=== PATIENT | male | born 1945 | race Caucasian/White ===

== ENCOUNTER → 2018-04-16 | Outpatient (CLI) | payer MEDICARE ==
[~2018-04-16] MED LIST: AMLODIPINE BES1 TA1 PO; ASPIRIN81 M1 PO; AUGMENTIN 875-875 MG PO; CARDIZEM CD240 MG PO; COQ-1030 MG PO; COUMADIN3 M1 PO; LANOXIN0.25 MG PO; LISINOPRIL HCTZ1 TAB PO; METFORMIN500 MG PO; MULTI VITAMINS1 TAB PO; TENORMIN50 MG PO; VITAMIN D400 I1 PO; VYTORIN 10 MG-21 TA2 PO; XANAX0.25 MG PO; ZESTRIL10 MG PO
== END | disposition home or self-care (01) ==
LOC: US 12:44
DX: I65.21 Occlusion and stenosis of right carotid artery (principal); I25.10 Atherosclerotic heart disease of native coronary artery without angina pectoris; I48.2 Chronic atrial fibrillation; I10 Essential (primary) hypertension; R09.89 Other specified symptoms and signs involving the circulatory and respiratory systems; Z79.01 Long term (current) use of anticoagulants; Z86.79 Personal history of other diseases of the circulatory system

== ENCOUNTER → 2019-01-18 | Outpatient (CLI) | payer MEDICARE ==
--- NOTE | ~2019-01-18 | HM ---
[place], [place] HOLTER MONITOR REPORT NAME: JASPER GIBBONS UNIT #: [id number] ROOM: DOCTOR: ELIDA DAWSON MD BIRTHDATE: [birth year] DOS: 01/19/2019 24-hour Holter Monitor REFERRING PHYSICIAN: William Butcher M.D. INDICATION: Chronic atrial fibrillation and medication adjustment. The patient underwent standard protocol of 24-hour Holter monitor. The patient's baseline rhythm is atrial fibrillation with slow ventricular response with average heart rate of 53 beats per minute. The patient's minimum heart rate was 31 beats per minute, which was noted in the early a.m. hours, particularly at 4:45 a.m. with a maximum heart rate of 88 beats per minute. 1. Ventricular activity, there were 3 isolated PACs were noted. 2. Ventricular activity, total of 10 isolated PVCs were noted. 3. No significant blocks, pauses, or bradycardia was noted. The longest R-R duration was noted to be 2.3 seconds occurring at 12:51 in the afternoon. 4. No diary entries were noted. SUMMARY OF FINDINGS: 1. Baseline atrial fibrillation with slow ventricular response with a minimum heart rate of 31 beats per minute in early a.m. hours. 2. Longest R-R interval was 2.3 seconds happening in the middle of the day hours. 3. Very rare PACs and PVCs were noted. 4. No diary was returned. ELIDA DAWSON MD CM:HOLTER:HOLTER MONITOR REPORT [id number] ELIDA DAWSON MD
== END | disposition home or self-care (01) ==
LOC: CARD 00:38
DX: Z51.89 Encounter for other specified aftercare (principal); I48.2 Chronic atrial fibrillation

== ENCOUNTER 2019-10-10 12:59 | Inpatient (IN) | payer MEDICARE ==
[~2019-10-10] VITALS: Ht 167.6 cm; Wt 75.4 kg
[2019-10-10 13:06] VITALS: BP 137/59
[2019-10-10 13:22] LABS: HEMATOCRIT 30.6 % (42.0-52.0); HEMOGLOBIN 8.7 g/dl (14.0-18.0); MEAN CELL VOLUME 75.9 fl (80.0-94.0); MEAN CORPUSCULAR HGB 21.6 pg (27.0-31.0); MEAN CORPUSCULAR HGB CONC 28.4 g/dl (33.0-37.0); MEAN PLATELET VOLUME 10.6 fl (9.6-12.3); NUCLEATED RED BLOOD CELL 0.2 % (0.0-0.0); PLATELET COUNT AUTOMATED 311 10*3/uL (130-400); RED BLOOD COUNT 4.03 10*6/uL (4.50-5.90); RED CELL DISTRI WIDTH 21.6 % (0-14.5); WHITE BLOOD COUNT 8.5 10*3/uL (4.8-10.8)
[2019-10-10 13:32] LABS: ACT PARTIAL THROMBO TIME 37.6 SECONDS (20.0-32.1); INTERNATIONAL NORM RATIO 4.1 (2.0-3.5)
[2019-10-10 13:39] LABS: ALKALINE PHOSPHATASE 128 U/L (45-117); BUN 35 mg/dl (7-24); CHLORIDE 98 mmol/L (98-107); CREATININE 1.97 mg/dL (0.70-1.30); POTASSIUM 5.4 mmol/L (3.5-5.1); SGOT/AST 50 IU/L (3-35); SGPT/ALT 33 U/L (12-78); SODIUM 130 mmol/L (136-145); TOTAL CELLS COUNTED 100 #CELLS; TOTAL PROTEIN 8.3 gm/dL (6.4-8.2)
[2019-10-10 13:40] LABS: MICROCYTOSIS SLIGHT; OVALOCYTES FEW; PLATELET SUFFICIENCY NORMAL (NORMAL); POLYCHROMASIA SLIGHT
[2019-10-10 13:41] LABS: BURR CELLS FEW; TARGET CELLS FEW; TROPONIN I < 0.015 ng/ml (<0.045)
[2019-10-10 14:43] VITALS: BP 135/49
[2019-10-10] MEDS ORDERED: ATENOLOL100 M1 PO (15:20)
[2019-10-10] MEDS ORDERED: AMLODIPINE BESYL5 MG PO (15:20)
[2019-10-10] MEDS ORDERED: LASIX40 MG PO (15:21)
[2019-10-10 15:23] VITALS: BP 123/62
[2019-10-10] MEDS ORDERED: ZETIA10 MG PO (15:23)
[2019-10-10] MEDS ORDERED: SIMVASTATIN20 MG PO (15:24)
[2019-10-10] MEDS ORDERED: COUMADIN2 M1 PO (15:29)
--- NOTE | 2019-10-10 15:29 | NUR ---
DR. DAWSON'S ANSWERING SERVICE NOTIFIED OF CONSULT.
[2019-10-10] MEDS ORDERED: COUMADIN4 M2 PO (15:41)
--- NOTE | 2019-10-10 15:42 | NUR ---
MED REC UPDATED PER POLICY.
--- NOTE | 2019-10-10 17:11 | NUR ---
DR. ELKINS INFOMRED OF TROPONIN LEVEL.
--- NOTE | 2019-10-10 18:03 | NUR ---
ATTEMPTED TO PLACE DAVID CATHETER WITH NO URINE RETURN. PATIENT STATED HE HAD JUST VOIDED BUT BLOOD WAS NOTICED IN DAVID CATHETER TUBING. DAVID REMOVED AND PRESSURE HELD UNTIL BLEEDING STOPPED. DR. DSOUZA NOTIFIED AND DAVID CATHETER NOT BEING PLACED AT THIS TIME. WILL MONITOR.
--- NOTE | 2019-10-10 19:33 | NUR ---
DR HUANG AWARE OF CRITICAL TROPONIN. ORDERS TAKEN
--- NOTE | 2019-10-10 19:35 | NUR ---
PATIENT RESTING IN BED WITH AT BEDSIDE. DENIES CHEST PAIN OR SHORTNESS OF BREATH AT THIS TIME
[2019-10-10 20:00] VITALS: BP 123/55
--- NOTE | 2019-10-10 20:02 | NUR ---
PAGE SENT OUT TO DR ELKINS AT THIS TIME
--- NOTE | 2019-10-10 20:06 | NUR ---
DR ELKINS AWARE OF PATIENT'S TROPONINS, EKG, AND LABS. STATES TO NOT GIVE THE LOVENOX UNTIL INR IS BELOW 2. TROPONIN AND EKG ORDERS FOR THE AM TAKEN.
--- NOTE | 2019-10-10 22:40 | NUR ---
24 HR chart check completed.
[2019-10-11] VITALS: BP 126/43
--- NOTE | 2019-10-11 02:51 | NUR ---
PATIENT RESTING WITH EYES CLOSED. RESPS REGULAR ON 3L NC. BED IN LOWEST POSITON, CALL LIGHT IN REACH
[2019-10-11 05:32] LABS: HEMATOCRIT 28.2 % (42.0-52.0); HEMOGLOBIN 8.2 g/dl (14.0-18.0); MEAN CELL VOLUME 72.9 fl (80.0-94.0); MEAN CORPUSCULAR HGB 21.2 pg (27.0-31.0); MEAN CORPUSCULAR HGB CONC 29.1 g/dl (33.0-37.0); MEAN PLATELET VOLUME 10.1 fl (9.6-12.3); NUCLEATED RED BLOOD CELL 0.3 % (0.0-0.0); PLATELET COUNT AUTOMATED 268 10*3/uL (130-400); RED BLOOD COUNT 3.87 10*6/uL (4.50-5.90); RED CELL DISTRI WIDTH 21.5 % (0-14.5); RETICULOCYTE % 2.09 % (0.50-2.50)
[2019-10-11 05:40] LABS: INTERNATIONAL NORM RATIO 4.2 (2.0-3.5)
[2019-10-11 05:56] LABS: ALBUMIN 3.7 gm/dl (3.1-4.5); CREATININE 1.82 mg/dL (0.70-1.30); PHOSPHOROUS 3.8 mg/dL (2.5-4.9); TOTAL PROTEIN 7.3 gm/dL (6.4-8.2)
[2019-10-11 05:59] LABS: TROPONIN I 0.132 ng/ml (<0.045)
[2019-10-11 06:07] LABS: BASOPHILS 1 % (0-1); DIGOXIN 0.1 ng/ml (0.8-2.0); FREE T4 1.45 ng/dl (0.76-1.46); THYROID STIM HORMONE (HS) 1.06 uIU/ml (0.358-4.75); TOTAL CELLS COUNTED 100 #CELLS
--- NOTE | 2019-10-11 06:07 | NUR ---
DR HUANG AWARE OF CRITICAL TROPONIN. NO ORDERS. STATES DO NOT NEED TO CALL CARDIO
[2019-10-11 06:08] LABS: BURR CELLS FEW; OVALOCYTES MODERATE
[2019-10-11 06:09] LABS: PLATELET SUFFICIENCY NORMAL (NORMAL)
[2019-10-11 08:00] VITALS: BP 120/52
[2019-10-11 08:30] LABS: FERRITIN 36.7 ng/mL (22.0-322.0); VITAMIN D, 25-HYDROXY 54.2 ng/mL (30-100)
--- NOTE | 2019-10-11 09:31 | NUR ---
NOTIFIED OF NEW CONSULT. TO GET BLOOD GASES PER AND CALL HIM WITH RESULTS.
[2019-10-11 10:17] LABS: ABG BASE EXCESS 0.1 mmol/L (-2.0-2.0); ARTERIAL BLOOD GAS PH 7.439 (7.35-7.45)
--- NOTE | 2019-10-11 10:39 | NUR ---
Patient not able to participate in Occupational Therapy at this time d/t critical troponin and SOB w/ min exertion. Nurse requested OTR recheck this pm. Cheyanne Hassan OTR/l
--- NOTE | 2019-10-11 10:48 | NUR ---
NOTIFIED WILL BLOOD GAS RESULTS. NO NEW ORDERS RECEIVED.
[2019-10-11 12:00] VITALS: BP 109/51
--- NOTE | 2019-10-11 13:53 | NUR ---
Patient approached and offered Occupational Therapy evaluation. Patient verbalized, I don't want any OT, "I've spent over $100,000.00 on OT already!" Patient then went on to explain that both of his daughters are Registered Occupational Therapists and that he has everything he needs from them. Patient pleasantly declined OT evaluation and explained that his daughters have modified his home and provide whatever he needs. D/C OT referral. Thank you. Cheyanne Hassan Otr/L
--- NOTE | 2019-10-11 14:09 | NUR ---
PHYSICAL THERAPY Chart reviewed attempted to see pt for assessement per nsg pt with critical troponin levels, to defer therapy at this time Opal Huerta PT
--- NOTE | 2019-10-11 14:40 | NUR ---
Java Web User Interface Developer in to talk to patient. Patient states lives at HOME with . There are NO steps in the home. Physician: JEAN [facility] [place] [facility]: NONE Patient's level of ADLs: INDEPENDENT Patient has working utilities: YES DME: [facility] Follow-up physician's appointment after d/c: WILL BE MADE BY HOSPITALIST NURSE DIRECTOR ON DISCHARGE Does patient want to access PORTAL?: NO Discharge plan PT LIVES AT HOME WITH AND IS INDEPENDENT IN HIS CARE. PT AND DENY THEY WILL HAVE AN NEEDS ON DISCHARGE. WILL CONTINUE TO FOLLOW. WILL TRANSPORT HOME. . SALBADOR WANG
[2019-10-11 16:00] VITALS: BP 122/60
--- NOTE | 2019-10-11 19:54 | NUR ---
PATIENT RESTING IN BED WITH AT BEDSIDE. DENIES SHORTNESS OF BREATH OR PAIN AT THIS TIME. BED IN LOWEST POSITION, CALL LIGHT IN REACH
[2019-10-11 20:00] VITALS: BP 119/49
--- NOTE | 2019-10-11 20:48 | NUR ---
DR HUANG AWARE OF BLOOD PRESSURE AND HEART RATE. OK TO GIVE SCHEDULED LOPRESSOR
[2019-10-12] VITALS: BP 111/46
[2019-10-12 07:33] LABS: INTERNATIONAL NORM RATIO 2.3 (2.0-3.5)
[2019-10-12 07:53] LABS: HEMATOCRIT 28.3 % (42.0-52.0); HEMOGLOBIN 8.4 g/dl (14.0-18.0); MEAN CELL VOLUME 73.7 fl (80.0-94.0); MEAN CORPUSCULAR HGB 21.9 pg (27.0-31.0); MEAN CORPUSCULAR HGB CONC 29.7 g/dl (33.0-37.0); NUCLEATED RED BLOOD CELL 0.1 10*3/uL (0.0-0.0); NUCLEATED RED BLOOD CELL 0.5 % (0.0-0.0); PLATELET COUNT AUTOMATED 278 10*3/uL (130-400); RED BLOOD COUNT 3.84 10*6/uL (4.50-5.90); RED CELL DISTRI WIDTH 22.3 % (0-14.5); WHITE BLOOD COUNT 10.7 10*3/uL (4.8-10.8)
[2019-10-12 08:00] VITALS: BP 128/58
[2019-10-12 08:02] LABS: ALBUMIN 3.8 gm/dl (3.1-4.5); ALKALINE PHOSPHATASE 123 U/L (45-117); BUN 33 mg/dl (7-24); CHLORIDE 99 mmol/L (98-107); CREATININE 1.34 mg/dL (0.70-1.30); PHOSPHOROUS 2.7 mg/dL (2.5-4.9); POTASSIUM 4.6 mmol/L (3.5-5.1); SGOT/AST 81 IU/L (3-35); SGPT/ALT 60 U/L (12-78); SODIUM 132 mmol/L (136-145)
[2019-10-12 08:22] LABS: ATYPICAL LYMPHS 1 % (0-0); POLYCHROMASIA SLIGHT; SCHISTOCYTES FEW; TOTAL CELLS COUNTED 100 #CELLS
[2019-10-12 08:23] LABS: PLATELET SUFFICIENCY NORMAL (NORMAL); TARGET CELLS FEW
[2019-10-12 08:24] LABS: MICROCYTOSIS SLIGHT
--- NOTE | 2019-10-12 11:15 | NUR ---
PHYSICAL THERAPY Attempted to see pt for evaluation however declining at present time as he wants to wait until after he receives his thoracentesis. present and in agreement with patient, will follow Opal Huerta PT
[2019-10-12 12:00] VITALS: BP 121/73
--- NOTE | 2019-10-12 14:50 | NUR ---
PATIENT VOIDED 100ML PINK-CLEAR URINE, STATES HAD SOME BURNING W/URINATION WHEN VOIDING THIS URINE.
[2019-10-12 16:00] VITALS: BP 120/52
[2019-10-12 20:00] VITALS: BP 138/58
--- NOTE | 2019-10-12 20:30 | NUR ---
RESTIING IN BED WITH HOB ELEVATED. 02 INTACT AT 2LPM VIA N/C; PULSE OX 93%. LUNGS WITH EXPIRATORY WHEEZES NOTED & PT. HAS A MOIST COUGH PRODUCTIVE FOR YELLOW SPUTUM. PITTING EDEMA NOTED TO BILATERAL LOWER EXTREMITY +2/+3. PT. VOICES NO C/O AT THIS TIME. NO DISTRESS NOTED. CALL LIGHT WITHIN REACH.
--- NOTE | 2019-10-12 22:00 | NUR ---
BLOOD SUGAR 128; NO COVERAGE REQUIRED.
--- NOTE | 2019-10-12 23:04 | NUR ---
Pt increased from 2L NC to 3L NC. SpO2 91% inc to 94%
--- NOTE | 2019-10-12 23:20 | NUR ---
REPORT RECEIVED FROM ROLAND RN. PT WATCHING TV. VOICES NO COMPLAINTS AT THIS TIME. CALL LIGHT IN REACH.
[2019-10-13] VITALS: BP 134/49
[2019-10-13 06:39] LABS: INTERNATIONAL NORM RATIO 1.7 (2.0-3.5)
[2019-10-13 06:48] LABS: ALBUMIN 3.4 gm/dl (3.1-4.5); CHLORIDE 100 mmol/L (98-107); CREATININE 1.02 mg/dL (0.70-1.30); POTASSIUM 4.1 mmol/L (3.5-5.1); SODIUM 133 mmol/L (136-145)
[2019-10-13 06:51] LABS: BUN 22 mg/dl (7-24)
[2019-10-13 08:00] VITALS: BP 124/62
--- NOTE | 2019-10-13 08:10 | NUR ---
DR. ALLISON IN TO PERFORM RT THORACENTESIS. PROCEDURE START TIME 0755, END TIME 08. 1050ML PLEURAL FLUID REMOVED, PATIENT TOLERATED WELL. GAUZE DRESSING APPLIED TO RIGHT POSTERIOR RIB CAGE, NO BLEEDING NOTED. SAMPLES SENT TO LAB.
[2019-10-13 09:22] LABS: BODY FLUID WBC 9 /uL
[2019-10-13 11:15] LABS: BF LYMPHOCYTES 39 %; BF MACROPHAGES 33 %; BF MONOCYTES 2 %; BF NEUTROPHILS 26 %
--- NOTE | 2019-10-13 11:34 | NUR ---
PHYSICAL THERAPY Attempted to see pt for evaluaion presently receiving a breathing treatment and per Maria Eugenia he is very tired this AM and does not want pt seen. Will try to follow in the PM for assessment. Opal Huerta PT
[2019-10-13 12:00] VITALS: BP 110/59
--- NOTE | 2019-10-13 12:26 | NUR ---
BLOCK CAPTAIN IN TO TALK TO PT AND . BOTH CONTINUE TO STATE PT WILL RETURN HOME ON DISCHARGE AND WILL HAVE NO NEEDS. WILL CONTINUE TO FOLLOW.
--- NOTE | 2019-10-13 15:13 | NUR ---
PHYSICAL THERAPY Lisa completed full report to follow moderate level of complexity 06981 Pt would benfit from further rehab but per will take home recomend f/u HH and may need FWW pending progress with amb. PT to work on transfer,amb and strengthening. Opal Huerta PT
[2019-10-13 16:00] VITALS: BP 102/50
--- NOTE | 2019-10-13 19:15 | NUR ---
IN TO SEE PT AT THIS TIME. PT CO SOME BLEEDING FROM HIS PRIVATE PARTS. . BLEEDING SEEMS TO BE SUBSIDING AT THIS POINT. RESPIRATIONS EASY, NONLABORED. PT HAS NO OTHER COMPLAINTS AT THIS TIME. WILL CONTINUE TO MONITOR. CALL LIGHT WITHIN REACH.
[2019-10-13 20:00] VITALS: BP 120/54
[2019-10-14] VITALS: BP 104/54
--- NOTE | 2019-10-14 01:32 | NUR ---
24 HR chart check completed.
--- NOTE | 2019-10-14 04:29 | NUR ---
PT REQUESTING PRN XANEX AT THIS TIME. MEDICATED WITH PRN XANEX ORDERED FOR ANXIETY. WILL CHECK EFFECTIVENESS. CALL LIGHT WITHIN REACH.
[2019-10-14 07:11] LABS: INTERNATIONAL NORM RATIO 1.5 (2.0-3.5)
[2019-10-14 08:00] VITALS: BP 112/62
--- NOTE | 2019-10-14 10:00 | NUR ---
PHYSICAL THERAPY Patient seen this am 1:1 for therapy visit and was supine in bed with his present upon therapist arrival. Patient identified by name / and reports feeling a bit "sluggish" this morning. Patient transfers supine to sit EOB with MIN A, then sit to stand CGA x 1, ambulating with use of wh walker, 20'x 2 to bathroom, CGA. Patient performed safe toilet transfer and was assisted by his for all ADL'S. Patient demonstrated slow tonny with decreased stride, no LOB, however increased fatigue upon return to supine in bed. Patient remained in bed with call light, tray table, telephone and bed alarm for safety. Will continue per POC as tolerated, total treatment time 16 minutes. Roger Schroeder, SPARE PERSON
--- NOTE | 2019-10-14 11:40 | NUR ---
REFUSED BSG CHECK. ASKED TO COME BACK AT A LATER TIME.
--- NOTE | 2019-10-14 11:45 | NUR ---
DR.AZIZ FRANCO FOR PT TO DISCHARGE WHEN ABLE. WISHES FOR FOLLOW UP IN HIS OFFICE.
--- NOTE | 2019-10-14 11:49 | NUR ---
PT WAS ASSESSED FOR HOME O2. PT QUALIFIES PT AT REST SPO2 85-87% HR 100, RR 18, B/P 115/47, PLACED PT ON 2LNC PT AMBULATED SPO2 93-94% ON 2LNC PT AT REST SPO2 95% 2LNC, HR 98, RR 18, B/P 125/47 DR NOTIFIED AND RN NOTIFIED
[2019-10-14 12:00] VITALS: BP 110/60
--- NOTE | 2019-10-14 12:30 | NUR ---
CALLED TO ROOM BY DR JO TO TALK ABOUT PT GOING HOME WITH [facility] AND TO SEE IF DR PENA WOULD FOLLOW PT DAILY INR UNTIL THERAPEUTIC. SPOKE WITH DR SQUIRES OFFICE AND HE WILL FOLLOW IT DAILY UNTIL HE GOES OUT ON Oct. PER DR PENA HE WILL NEED TO BE CALLED DAILY WITH INR RESULTS. DR ORELLANA INFORMED. CALLED [facility] TO CHECK COST OF MED THEY ARE CHECKING AND WILL CALL ME BACK. ALSO CALLED [facility] TO CHECK COST, IT WOULD BE AROUND 45$ HERE. ALSO CALLED [facility] AND THEY WILL GO TO HOUSE AND CHECKED TO SEE IF THEY WERE ABLE TO DO DAILY INR. THEY WILL BE ABLE TO DO IT PER GANESH. [facility] AND INFORMED HER OF ABOVE.
--- NOTE | 2019-10-14 13:18 | NUR ---
RECEIVED A CALL BACK FROM [facility] THE COST OF MED THERE IS [phone]. CALLED HOSPITALIST OFFICE AND INFORMED WANDY THAT PT WOULD NEED SCRIP SENT TO OUR PHARMACY TO GET MED AT 45$.
--- NOTE | 2019-10-14 13:34 | NUR ---
TALKED WITH MAISHA IN HOSPITALIST OFFICE ABOUT PT AND CONCERNS IF INR IS NOT THERAPEUTIC BY THE TIME DR PENA GOES OUT OF TOWN. STATES SHE WILL PUT RESIDENT CLINIC NUMBER ON DISCHARGE FORM AND THEY WILL TAKE CARE OF IT. WILL INFORM AND PT.
[2019-10-14] MEDS ORDERED: METOPROLOL TART50 M1 PO (13:43)
[2019-10-14] MEDS ORDERED: ALDACTONE25 MG PO (13:43)
--- NOTE | 2019-10-14 14:04 | NUR ---
REFERRAL SENT TO [facility].
[2019-10-14 16:00] VITALS: BP 117/49
--- NOTE | 2019-10-14 17:00 | NUR ---
REFUSED BSG CHECK.
--- NOTE | 2019-10-14 17:01 | NUR ---
Discharge instructions reviewed with patient/family. Patient receptive and verbalizes understanding. Follow-up care arranged. Written instructions given to patient/family. ZUHAIR ABARCA
--- NOTE | 2019-10-15 14:43 | NUR ---
PHYSICAL THERAPY CO-SIGN I approve of the Physical Therapy notes written above. Opal Huerta PT
== END 2019-10-14 17:01 | disposition home health service (06) | DRG 291 ==
LOC: ED 12:59 → 4E 14:18 → EDHOLD 14:18 → 4E 14:28
PROVIDERS: Emergency Medicine; Internal Medicine; Internal Medicine Critical Care Medicine; Registered Nurse; ADMIT Internal Medicine
PROC: 0W993ZZ Drainage of Right Pleural Cavity, Percutaneous Approach (ICD-10-PCS; principal; 2019-10-13)
DX: I13.0 Hypertensive heart and chronic kidney disease with heart failure and stage 1 through stage 4 chronic kidney disease, or unspecified chronic kidney disease (principal); N17.0 Acute kidney failure with tubular necrosis; J96.01 Acute respiratory failure with hypoxia; I50.33 Acute on chronic diastolic (congestive) heart failure; E87.1 Hypo-osmolality and hyponatremia; I48.21 Permanent atrial fibrillation; D68.69 Other thrombophilia; E44.1 Mild protein-calorie malnutrition; I24.8 Other forms of acute ischemic heart disease; J91.8 Pleural effusion in other conditions classified elsewhere; E87.5 Hyperkalemia; Z96.642 Presence of left artificial hip joint; D50.9 Iron deficiency anemia, unspecified; E78.00 Pure hypercholesterolemia, unspecified; E11.65 Type 2 diabetes mellitus with hyperglycemia; I27.20 Pulmonary hypertension, unspecified; T46.4X5A Adverse effect of angiotensin-converting-enzyme inhibitors, initial encounter; I08.0 Rheumatic disorders of both mitral and aortic valves; N18.9 Chronic kidney disease, unspecified; E11.22 Type 2 diabetes mellitus with diabetic chronic kidney disease; I25.10 Atherosclerotic heart disease of native coronary artery without angina pectoris; R91.1 Solitary pulmonary nodule; T45.515A Adverse effect of anticoagulants, initial encounter; Y92.89 Other specified places as the place of occurrence of the external cause; Z79.01 Long term (current) use of anticoagulants; Z95.2 Presence of prosthetic heart valve; Z82.49 Family history of ischemic heart disease and other diseases of the circulatory system; Z80.8 Family history of malignant neoplasm of other organs or systems; Z79.899 Other long term (current) drug therapy; Z79.82 Long term (current) use of aspirin; Z68.28 Body mass index [BMI] 28.0-28.9, adult

== ENCOUNTER → 2019-11-28 | Outpatient (CLI) | payer MEDICARE ==
[~2019-11-28] MED LIST changes: +ALDACTONE25 MG PO; +AMLODIPINE BESYL5 MG PO; +ATENOLOL100 M1 PO; +COUMADIN2 M1 PO; +COUMADIN4 M2 PO; +LASIX40 MG PO; +METOPROLOL TART50 M1 PO; +SIMVASTATIN20 MG PO; +ZETIA10 MG PO
[2019-11-28 12:56] LABS: INTERNATIONAL NORM RATIO 1.9 (2.0-3.5)
== END | disposition home or self-care (01) ==
LOC: LAB 12:26
PROVIDERS: Internal Medicine Cardiovascular Disease
DX: I25.2 Old myocardial infarction (principal); Z95.2 Presence of prosthetic heart valve; R55 Syncope and collapse; Z79.01 Long term (current) use of anticoagulants

== ENCOUNTER → 2019-12-10 | Outpatient (CLI) | payer MEDICARE ==
--- NOTE | 2019-12-10 10:26 | NUR ---
INFORMED SIGNED CONSENT OBTAINED FOR LEXISCAN STRESS TEST WITH DR BUSTILLO. RESTING EKG AFIB HR 84 BP 148/60. PULSE OX 98% LUNGS CLEAR. PT COMPLETED ONE MINUTE OF A LEXISCAN PROTOCOL WITH PT RECEIVING LEXISCAN 0.4MG IV OVER 10 SECONDS. NO ARRHYTHMIAS OR ST CHANGES NOTED. LAST RECOVERY HR OF 85 BP 140/52. PT IN STABLE CONDITION, AWAITING NUCLEAR IMAGES IN STABLE CONDITION.
== END | disposition home or self-care (01) ==
LOC: CARD 00:03
DX: R06.02 Shortness of breath (principal)

== ENCOUNTER → 2020-06-20 | Outpatient (CLI) | payer MEDICARE | END | disposition home or self-care (01) | LOC: CARD 00:45 | DX: I08.1 Rheumatic disorders of both mitral and tricuspid valves (principal); I27.20 Pulmonary hypertension, unspecified ==

== ENCOUNTER 2020-10-30 16:53 | Inpatient (IN) | payer MEDICARE ==
[~2020-10-30] VITALS: Ht 167.6 cm; Wt 64.0 kg
[2020-10-30] VITALS (7 sets, daily range): BP systolic 104–118; BP diastolic 37–55
[2020-10-30 17:27] LABS: MEAN CELL VOLUME 62.6 fl (80.0-94.0); MEAN CORPUSCULAR HGB 17.2 pg (27.0-31.0); MEAN CORPUSCULAR HGB CONC 27.5 g/dl (33.0-37.0); MEAN PLATELET VOLUME 9.5 fl (9.6-12.3); NUCLEATED RED BLOOD CELL 0.3 10*3/uL (0.0-0.0); NUCLEATED RED BLOOD CELL 2.8 % (0.0-0.0); PLATELET COUNT AUTOMATED 375 10*3/uL (130-400); RED BLOOD COUNT 3.02 10*6/uL (4.50-5.90); RED CELL DISTRI WIDTH 22.6 % (0-14.5); WHITE BLOOD COUNT 9.4 10*3/uL (4.8-10.8)
[2020-10-30 17:34] LABS: HEMATOCRIT 18.9 % (42.0-52.0)
[2020-10-30 17:42] LABS: ACT PARTIAL THROMBO TIME 48.3 SECONDS (20.0-32.1)
[2020-10-30 17:47] LABS: ALBUMIN 3.1 gm/dl (3.1-4.5); CREATININE 4.86 mg/dL (0.70-1.30); TOTAL CELLS COUNTED 100 #CELLS; TOTAL PROTEIN 6.8 gm/dL (6.4-8.2)
[2020-10-30 17:48] LABS: MICROCYTOSIS MARKED; PLATELET SUFFICIENCY NORMAL (NORMAL); STOMATOCYTE FEW
[2020-10-30 17:53] LABS: POTASSIUM 6.5 mmol/L (3.5-5.1)
[2020-10-30 17:54] LABS: TROPONIN I 0.046 ng/ml (<0.045)
[2020-10-30 18:01] LABS: INTERNATIONAL NORM RATIO 6.3 (2.0-3.5)
[2020-10-30 18:27] LABS: BILIRUBIN Negative (Negative); BLOOD Trace-Lysed (Negative); CLARITY Cloudy (Clear); COLOR Yellow (Yellow); GLUCOSE Negative (Negative); KETONE Negative (Negative); LEUKO ESTERASE 1+ (Negative); NITRITE Negative (Negative); SPECIFIC GRAVITY 1.015 (1.001-1.030)
[2020-10-30 18:39] LABS: BACTERIA TRACE
[2020-10-30 20:58] LABS: CREATININE 4.89 mg/dL (0.70-1.30)
[2020-10-30 21:09] LABS: POTASSIUM 6.6 mmol/L (3.5-5.1); TROPONIN I 0.046 ng/ml (<0.045)
[2020-10-30 23:22] LABS: CREATININE 4.82 mg/dL (0.70-1.30)
[2020-10-30 23:34] LABS: POTASSIUM 6.4 mmol/L (3.5-5.1)
[2020-10-31] VITALS (14 sets, daily range): BP systolic 105–123; BP diastolic 36–68
[2020-10-31 06:09] LABS: ALBUMIN 3.2 gm/dl (3.1-4.5); CREATININE 4.85 mg/dL (0.70-1.30); FREE T4 1.4 ng/dl (0.76-1.46); POTASSIUM 5.6 mmol/L (3.5-5.1); TOTAL PROTEIN 6.8 gm/dL (6.4-8.2)
[2020-10-31 06:14] LABS: THYROID STIM HORMONE (HS) 1.98 uIU/ml (0.358-4.75)
[2020-10-31 06:31] LABS: ACT PARTIAL THROMBO TIME 41.8 SECONDS (20.0-32.1)
[2020-10-31 06:33] LABS: HEMATOCRIT 24.3 % (42.0-52.0); MEAN CORPUSCULAR HGB 20.8 pg (27.0-31.0); MEAN PLATELET VOLUME 9.9 fl (9.6-12.3); NUCLEATED RED BLOOD CELL 0.3 10*3/uL (0.0-0.0); NUCLEATED RED BLOOD CELL 2.9 % (0.0-0.0); PLATELET COUNT AUTOMATED 371 10*3/uL (130-400); RED BLOOD COUNT 3.51 10*6/uL (4.50-5.90); RED CELL DISTRI WIDTH 29.2 % (0-14.5); WHITE BLOOD COUNT 10.3 10*3/uL (4.8-10.8)
[2020-10-31 06:46] LABS: MEAN CELL VOLUME 69.2 fl (80.0-94.0)
[2020-10-31 07:28] LABS: TOTAL CELLS COUNTED 100 #CELLS
[2020-10-31 07:29] LABS: BURR CELLS FEW; MICROCYTOSIS MODERATE; OVALOCYTES FEW; PLATELET SUFFICIENCY NORMAL (NORMAL); POLYCHROMASIA SLIGHT; SCHISTOCYTES FEW
[2020-10-31] MEDS ORDERED: Coumadin2 MG PO (13:05)
[2020-11-01] VITALS: BP 126/53
[2020-11-01 08:00] VITALS: BP 115/58
== END 2020-11-01 11:30 | disposition hospice, home (50) | DRG 682 ==
LOC: ED 16:53 → 5E 18:38 → EDHOLD 18:38 → ICCU 21:01 → 5E 10-31 18:01
PROVIDERS: Emergency Medicine; Internal Medicine; Social Worker Clinical; ADMIT Internal Medicine; ATTEND Internal Medicine
PROC: 30233K1 Transfusion of Nonautologous Frozen Plasma into Peripheral Vein, Percutaneous Approach (ICD-10-PCS; principal; 2020-10-30)
PROC: 30233N1 Transfusion of Nonautologous Red Blood Cells into Peripheral Vein, Percutaneous Approach (ICD-10-PCS; 2020-10-31)
DX: N17.0 Acute kidney failure with tubular necrosis (principal); J96.21 Acute and chronic respiratory failure with hypoxia; D62 Acute posthemorrhagic anemia; E87.1 Hypo-osmolality and hyponatremia; C34.90 Malignant neoplasm of unspecified part of unspecified bronchus or lung; E44.0 Moderate protein-calorie malnutrition; I48.21 Permanent atrial fibrillation; D68.9 Coagulation defect, unspecified; E87.5 Hyperkalemia; I27.20 Pulmonary hypertension, unspecified; Z66 Do not resuscitate; Z51.5 Encounter for palliative care; Z79.01 Long term (current) use of anticoagulants; R04.0 Epistaxis; E83.41 Hypermagnesemia; E83.39 Other disorders of phosphorus metabolism; E11.65 Type 2 diabetes mellitus with hyperglycemia; I25.10 Atherosclerotic heart disease of native coronary artery without angina pectoris; I50.9 Heart failure, unspecified; I07.1 Rheumatic tricuspid insufficiency; I11.0 Hypertensive heart disease with heart failure; Z96.642 Presence of left artificial hip joint; Z79.82 Long term (current) use of aspirin; Z79.899 Other long term (current) drug therapy; Z79.84 Long term (current) use of oral hypoglycemic drugs; I25.2 Old myocardial infarction; Z95.4 Presence of other heart-valve replacement; Z68.22 Body mass index [BMI] 22.0-22.9, adult